=== PATIENT | male | born 1985 | race Caucasian/White ===

== ENCOUNTER 2019-09-20 07:52 | Outpatient (CLI) | payer OTHER ==
[2019-09-20] MEDS ORDERED: UMEC62.5 INH (09:52)
[2019-09-20] MEDS ORDERED: MONT10TA11 PO (09:52)
[2019-09-20] MEDS ORDERED: FLUT16AE NAS (09:52)
[2019-09-20] MEDS ORDERED: BUDE10.2 INH (09:52)
[2019-09-20] MEDS ORDERED: PRED20TA PO (09:52)
== END 2019-09-20 23:59 | disposition home or self-care (01) ==
LOC: STAR 07:52
PROVIDERS: ATTEND Otolaryngology
DX: Z02.9 Encounter for administrative examinations, unspecified (principal)

== ENCOUNTER 2019-09-25 07:43 | Day surgery (SDC) | payer OTHER ==
[~2019-09-25] VITALS: Ht 200.7 cm; Wt 71.9 kg
[~2019-09-25 07:43] MED LIST: BACITRACIN 50,000 UNIT ONE; BACITRACIN OINT 500U/GM, 15 GM ONE; BUDE10.2 INH; EPINEPHRINE TOPICAL SOLN 1 MG/ML, 30ML ONE; FLUORESCEIN SODIUM 500 MG/5 ML ONE; FLUT16AE NAS; LIDOCAINE 1%-EPI 1:100K, 20ML ONE; LIDOCAINE/PF 1%-EPI 1:200K, 30 ML ONE; MONT10TA11 PO; OXYMETAZOLINE NASAL SPRAY 0.05%, 15ML ONE; PRED20TA PO; UMEC62.5 INH
[2019-09-25 08:19] VITALS: BP 143/91
[2019-09-25] MEDS ORDERED: CHLORHEXIDINE 15 ML UDC ONE (08:22)
[2019-09-25] MEDS ORDERED: CHLORHEXIDINE 15 ML UDC MM ONE (08:30)
[2019-09-25] MEDS ORDERED: CEFAZOLIN 1,000 MG ONE (09:00)
[2019-09-25] MEDS ORDERED: GLYCOPYRROLATE 0.2MG/1ML, 5ML ONE (09:00)
[2019-09-25] MEDS ORDERED: SUCCINYLCHOLINE 20 MG/ML, 10ML ONE (09:00)
[2019-09-25] MEDS ORDERED: FENTANYL PF 100 MCG/2ML ONE ×2 (09:00→12:34)
[2019-09-25] MEDS ORDERED: ONDANSETRON 2MG/ML, 2ML ONE ×2 (09:00→12:34)
[2019-09-25] MEDS ORDERED: PROPOFOL 10 MG/ML, 20ML ONE (09:00)
[2019-09-25] MEDS ORDERED: MIDAZOLAM 1 MG/ML, 2ML ONE (09:00)
[2019-09-25] MEDS ORDERED: LACTATED RINGERS 1,000 ML IV SCH (09:00)
[2019-09-25] MEDS ORDERED: NEOSTIGMINE 1 MG/ML, 10ML ONE (09:00)
[2019-09-25] MEDS ORDERED: ROCURONIUM 10MG/ML,5ML ONE (09:00)
[2019-09-25] MEDS ORDERED: DEXAMETHASONE 4 MG/ML, 1ML ONE (09:00)
[2019-09-25] MEDS ORDERED: SUGAMMADEX 200 MG/2 ML IVPush ONE (09:46)
[2019-09-25] MEDS ORDERED: LIDOCAINE 1%-EPI 1:100K, 20ML INFIL ONE (10:07)
[2019-09-25] MEDS ORDERED: BACITRACIN 50,000 UNIT IRRIG ONE (10:07)
[2019-09-25] MEDS ORDERED: FLUORESCEIN SODIUM 500 MG/5 ML IV ONE (10:07)
[2019-09-25] MEDS ORDERED: EPINEPHRINE TOPICAL SOLN 1 MG/ML, 30ML TP ONE (10:07)
[2019-09-25] MEDS ORDERED: OXYcodone 5 MG/5 ML ORAL.SOL UDC PO PRN (10:30)
[2019-09-25] MEDS ORDERED: HYDROmorphone 1 MG/ML, 1ML INJ IVPush PRN (10:30)
[2019-09-25] MEDS ORDERED: FENTANYL PF 100 MCG/2ML IV PRN (10:30)
[2019-09-25] MEDS ORDERED: MEPERIDINE/PF 25MG/0.5ML IVPush PRN (10:30)
[2019-09-25] MEDS ORDERED: PROMETHAZINE 25 MG/ML, 1ML IVPush PRN (10:30)
[2019-09-25] MEDS ORDERED: HYDROcodone/APAP 7.5-325MG/15ML UDC PO PRN (10:30)
[2019-09-25] MEDS ORDERED: BACITRACIN OINT 500U/GM, 15 GM TP ONE (11:50)
[2019-09-25] MEDS ORDERED: ALBUTEROL SULFATE 2.5 MG/3 ML ONE (12:37)
[2019-09-25] MEDS ORDERED: PROMETHAZINE 25 MG/ML, 1ML ONE (12:47)
[2019-09-25] MEDS ORDERED: OXYcodone 5 MG/5 ML ORAL.SOL UDC ONE (13:13)
[2019-09-25] MEDS ORDERED: ALBUTEROL SULFATE 2.5 MG/3 ML NPPB ONE (13:30)
[2019-09-25] MEDS ORDERED: ONDANSETRON 2MG/ML, 2ML IVPush ONE (13:30)
== END 2019-09-25 15:15 | disposition home or self-care (01) ==
LOC: OUT 07:43
PROVIDERS: ATTEND Otolaryngology
DX: J32.4 Chronic pansinusitis (principal); Z11.59 Encounter for screening for other viral diseases; J32.2 Chronic ethmoidal sinusitis; J34.2 Deviated nasal septum; J33.8 Other polyp of sinus; J34.89 Other specified disorders of nose and nasal sinuses; J45.909 Unspecified asthma, uncomplicated; G43.909 Migraine, unspecified, not intractable, without status migrainosus; Z79.899 Other long term (current) drug therapy; Z88.8 Allergy status to other drugs, medicaments and biological substances; Z72.89 Other problems related to lifestyle; Z82.5 Family history of asthma and other chronic lower respiratory diseases
CPT/HCPCS: 30520; 31240; 31253; 31259; 31267; 87070; 87075; 87205; 88304; 94640; J0330; J0690; J1100; J2250; J2405; J2550; J2704; J2710; J3010; J3490; J7120; U0001

== ENCOUNTER 2019-10-02 05:47 | Day surgery (SDC) | payer OTHER ==
[~2019-10-02] VITALS: Ht 200.7 cm; Wt 72.7 kg
[~2019-10-02 05:47] MED LIST changes: -BACITRACIN 50,000 UNIT ONE; -BACITRACIN OINT 500U/GM, 15 GM ONE; -EPINEPHRINE TOPICAL SOLN 1 MG/ML, 30ML ONE; -FLUORESCEIN SODIUM 500 MG/5 ML ONE; -LIDOCAINE 1%-EPI 1:100K, 20ML ONE; -LIDOCAINE/PF 1%-EPI 1:200K, 30 ML ONE; -OXYMETAZOLINE NASAL SPRAY 0.05%, 15ML ONE
[2019-10-02] MEDS ORDERED: LACTATED RINGERS 1,000 ML IV SCH (06:39)
[2019-10-02 06:40] VITALS: BP 148/91
[2019-10-02] MEDS ORDERED: OXYMETAZOLINE NASAL SPRAY 0.05%, 15ML ONE (06:57)
[2019-10-02] MEDS ORDERED: LIDOCAINE-MPF 1%, 2ML INFIL ONE (07:00)
[2019-10-02] MEDS ORDERED: CHLORHEXIDINE 15 ML UDC MM ONE (07:00)
== END 2019-10-02 08:29 | disposition home or self-care (01) ==
LOC: OUT 05:47
PROVIDERS: ATTEND Otolaryngology
DX: J33.8 Other polyp of sinus (principal); Z11.59 Encounter for screening for other viral diseases; J32.4 Chronic pansinusitis; J70.8 Respiratory conditions due to other specified external agents; J34.2 Deviated nasal septum; G43.909 Migraine, unspecified, not intractable, without status migrainosus; Z79.899 Other long term (current) drug therapy; Z88.6 Allergy status to analgesic agent; Z88.8 Allergy status to other drugs, medicaments and biological substances; Z82.5 Family history of asthma and other chronic lower respiratory diseases
CPT/HCPCS: 87635